=== PATIENT | female | born 1985 | race Hispanic/Latino ===

== ENCOUNTER 2019-02-03 09:48 | Emergency (ER) | payer MEDICAID, OTHER ==
[2019-02-03] MEDS ORDERED: KETOROLAC TROMETHAMINE 60 MG/2 ML VIAL ONE (10:44)
== END 2019-02-03 11:09 | disposition home or self-care (01) ==
LOC: EDH 09:48
DX: M25.561 Pain in right knee (principal); Z98.890 Other specified postprocedural states
CPT/HCPCS: 81025; 96372; 99283; J1885